=== PATIENT | female | born 1980 ===

== ENCOUNTER → 2019-09-06 | Outpatient (CLI) | payer BC | END | disposition home or self-care (01) | LOC: LAB SHORT 12:00 → LAB 12:00 | DX: L02.411 Cutaneous abscess of right axilla (principal) | CPT/HCPCS: 87070; 87077; 87147; 87186; 87205 ==

== ENCOUNTER → 2020-01-19 | Outpatient (CLI) | payer BC ==
[2020-01-20 15:10] LABS: HPV 16 Negative (Negative); HPV 18 Negative (Negative); HPV OTHER HR TYPES Negative (Negative)
== END | disposition home or self-care (01) ==
LOC: LAB 11:45 → LAB SHORT 11:45
PROVIDERS: Obstetrics & Gynecology
DX: Z01.419 Encounter for gynecological examination (general) (routine) without abnormal findings (principal)
CPT/HCPCS: 87624; G0123

== ENCOUNTER → 2020-10-25 | Outpatient (CLI) | payer BC ==
[~2020-10-25] MED LIST: ADAL40PEN; AZAT50; EMGALITY120 MG/1 M
[2020-10-26 14:49] LABS: Candida species (DNA Probe) Negative (NEGATIVE); G. vaginalis (DNA Probe) Negative (NEGATIVE); T. vaginalis (DNA Probe) Negative (NEGATIVE)
== END | disposition home or self-care (01) ==
LOC: LAB SHORT 18:04 → LAB 18:04
PROVIDERS: Obstetrics & Gynecology
DX: N89.8 Other specified noninflammatory disorders of vagina (principal)
CPT/HCPCS: 87480; 87510; 87660

== ENCOUNTER 2021-02-27 06:14 | Inpatient (IN) | payer BC ==
[~2021-02-27] VITALS: Ht 162.6 cm; Wt 71.8 kg
[2021-02-27] MEDS ORDERED: PRENATAL TABLE1 EAC2 PO (06:38)
[2021-02-27] MEDS ORDERED: FAMO10 PO (06:39)
[2021-02-27 07:07] LABS: BASOPHILS ABSOLUTE AUTO 0.04 K/mm3 (0.00-0.23); BASOPHILS PERCENT AUTO 1 % (0-2); EOSINOPHILS ABSOLUTE AUTO 0.19 K/mm3 (0.00-0.68); EOSINOPHILS PERCENT AUTO 2 % (0-6); Hematocrit 39.5 % (33.0-51.0); Hemoglobin 13.5 g/dL (11.5-16.0); IMMATURE GRAN ABSOLUTE AUTO 0.03 K/mm3 (0.00-0.10); IMMATURE GRAN PERCENT AUTO 0 % (0-1); LYMPHOCYTES ABSOLUTE AUTO 3.31 K/mm3 (0.84-5.20); LYMPHOCYTES PERCENT AUTO 40 % (21-46); MONOCYTES ABSOLUTE AUTO 0.49 K/mm3 (0.16-1.47); MONOCYTES PERCENT AUTO 6 % (4-13); Mean Corpuscular HGB 28.9 pg (26.0-34.0); Mean Corpuscular HGB Conc 34.2 g/dL (31.5-36.5); Mean Corpuscular Volume 85 fL (80-100); Mean Platelet Volume 10.6 fL (9.1-12.4); NEUTROPHILS ABSOLUTE AUTO 4.21 K/mm3 (1.96-9.15); NEUTROPHILS PERCENT AUTO 51 % (41-73); Platelet Count 193 K/mm3 (150-400); RDW Standard Deviation 52.5 fL (35.1-46.3); Red Blood Cell Count 4.67 M/mm3 (3.80-5.20); White Blood Cell Count 8.27 K/mm3 (4.00-11.30)
--- NOTE | 2021-02-27 15:28 | NUR ---
RN/LC ROUNDED TO HELP W/ . INSTRUCT/DEMO WIDENING LATCH, CORRECT POSITIONING AND NIPPLE SHAPE AFTER FEEDS. INSTRUCT/DEMO HAND EXPRESSION OF COLOSTRUM. TALKED W/ PT ABOUT FREQUENCY OF FEEDS AND SUPPLY/DEMAND OF BREASTMILK. FURTHER LC OFFERED IF PT DESIRES. PT LOVING W/ NB.
--- NOTE | 2021-02-28 15:57 | NUR ---
RN/LC ROUNDED TO HELP W/ . PT STATES IS GOING WELL. DENIES QUESTIONS OR CONCERNS. FURTHER LC OFFERED IF PT DESIRES.
== END 2021-02-28 13:40 | disposition home or self-care (01) | DRG 806 ==
LOC: OBS 06:14 → BC 06:15 → OBS 06:23 → BC 06:27
PROVIDERS: ADMIT Obstetrics & Gynecology
PROC: 10E0XZZ Delivery of Products of Conception, External Approach (ICD-10-PCS; principal; 2021-02-27)
PROC: 0HQ9XZZ Repair Perineum Skin, External Approach (ICD-10-PCS; 2021-02-27)
PROC: 3E033VJ Introduction of Other Hormone into Peripheral Vein, Percutaneous Approach (ICD-10-PCS; 2021-02-27)
PROC: 10907ZC Drainage of Amniotic Fluid, Therapeutic from Products of Conception, Via Natural or Artificial Opening (ICD-10-PCS; 2021-02-27)
DX: O99.612 Diseases of the digestive system complicating pregnancy, second trimester (principal); K51.90 Ulcerative colitis, unspecified, without complications; Z37.0 Single live birth; Z3A.39 39 weeks gestation of pregnancy; O70.0 First degree perineal laceration during delivery; Z20.822 Contact with and (suspected) exposure to COVID-19
CPT/HCPCS: 0241U; 85025; 86850; 86900; 86901; A9270; J2001; J2405; J2590; J3010; J7120

== ENCOUNTER → 2021-12-21 | Outpatient (CLI) | payer BC ==
[~2021-12-21] MED LIST changes: +FAMO10 PO; +PRENATAL TABLE1 EAC2 PO
[2021-12-21 14:26] LABS: C DIFFICILE DNA NEGATIVE (Negative)
== END ==
LOC: LAB SHORT 10:13
PROVIDERS: Internal Medicine Gastroenterology
DX: K51.00 Ulcerative (chronic) pancolitis without complications (principal)
CPT/HCPCS: 87493

== ENCOUNTER → 2023-01-16 | Outpatient (CLI) | payer BC | END | disposition home or self-care (01) | LOC: LAB SHORT 17:25 | DX: Z11.3 Encounter for screening for infections with a predominantly sexual mode of transmission (principal) | CPT/HCPCS: 86592 ==

== ENCOUNTER 2024-07-25 14:04 | Emergency (ER) | payer BC ==
[~2024-07-25] VITALS: Ht 162.6 cm; Wt 59.0 kg
[~2024-07-25 14:04] MED LIST changes: +Amitriptyline H10 MG
[2024-07-25 14:30] VITALS: BP 165/117
[2024-07-25] MEDS ORDERED: HYDROmorphone HCl/Pf 1MG SYR IM ONE (15:00)
[2024-07-25] MEDS ORDERED: PredniSONE 20 MG Tab PO ONE (15:00)
[2024-07-25] MEDS ORDERED: CYCL10 PO (15:38)
[2024-07-25] MEDS ORDERED: METPRE4DP PO (15:38)
[2024-07-25] MEDS ORDERED: Norco 5-325 Ta1 EACH PO (15:38)
== END 2024-07-25 16:14 | disposition home or self-care (01) ==
LOC: ER 14:04
DX: M54.12 Radiculopathy, cervical region (principal); K21.9 Gastro-esophageal reflux disease without esophagitis; Z79.899 Other long term (current) drug therapy; Z88.2 Allergy status to sulfonamides
CPT/HCPCS: 96372; 99283-25; J1170; J7512

== ENCOUNTER 2024-12-09 08:06 | Day surgery (SDC) | payer BC ==
[~2024-12-09] VITALS: Ht 162.6 cm; Wt 63.1 kg
[~2024-12-09 08:06] MED LIST changes: +CYCL10 PO; +METPRE4DP PO; +Norco 5-325 Ta1 EACH PO
[2024-12-09] MEDS ORDERED: LOSA50 PO (08:47)
[2024-12-09] MEDS ORDERED: Lidocaine HCl/Pf 1% 5 ML VIAL ONE (09:04)
[2024-12-09] MEDS ORDERED: Lactated Ringer's 1,000 ML IV ONE ×2 (09:27→09:30)
[2024-12-09] MEDS ORDERED: propofoL 40 ML IV ONE (09:27)
[2024-12-09 10:15] VITALS: BP 116/73
== END 2024-12-09 10:40 | disposition home or self-care (01) ==
LOC: ORSCSDS 08:06
PROVIDERS: Internal Medicine Gastroenterology
PROC: 0DBG8ZX Excision of Left Large Intestine, Via Natural or Artificial Opening Endoscopic, Diagnostic (ICD-10-PCS; principal; 2024-12-09 09:30)
PROC: 0DBF8ZX Excision of Right Large Intestine, Via Natural or Artificial Opening Endoscopic, Diagnostic (ICD-10-PCS; principal; 2024-12-09 09:30)
PROC: 0DBL8ZX Excision of Transverse Colon, Via Natural or Artificial Opening Endoscopic, Diagnostic (ICD-10-PCS; principal; 2024-12-09 09:30)
DX: K51.00 Ulcerative (chronic) pancolitis without complications (principal); K63.5 Polyp of colon; K64.4 Residual hemorrhoidal skin tags; Z79.899 Other long term (current) drug therapy
CPT/HCPCS: 88305; J2003; J2704; J7120